=== PATIENT | female | born 1955 | race African-American/Black ===

== ENCOUNTER 2016-10-30 22:07 | Emergency (ER) | payer OTHER, MEDICAID ==
[~2016-10-30] VITALS: Ht 165.1 cm; Wt 79.5 kg
[~2016-10-30 22:07] MED LIST: BENA10TA3 PO; CETI1TAB36 PO; GABA300C PO; TRAZ100T2 PO
[2016-10-30 23:12] LABS: Basophils # (auto) 0 uL; Basophils % (auto) 0.9 % (0.0-2.0); Eosinophils # (auto) 0.4 uL; Eosinophils % (auto) 7.3 % (0.0-7.0); Hematocrit 40.3 % (36.0-46.0); Hemoglobin 13.2 g/dL (12.2-16.2); Lymphocytes % (auto) 39.9 % (10.0-50.0); Mean Corpuscular Hemoglobin 29.9 pg (28.0-32.0); Mean Corpuscular Hgb Conc. 32.7 g/dL (32.0-36.0); Mean Corpuscular Volume 91.4 fL (80.0-100.0); Mean Platelet Volume 6.8 fL (7.4-10.4); Monocytes # (auto) 0.4 uL; Monocytes % (auto) 7.9 % (0.0-12.0); Neutrophils # (auto) 2.3 uL; Platelet Count (auto) 306 10^3/uL (140-450); White Blood Cell 5.1 10^3/uL (4.4-10.8)
[2016-10-30 23:15] LABS: Urine Bilirubin Negative (Negative); Urine Blood Negative /uL (Negative); Urine Color Yellow (Yellow); Urine Glucose Normal (Normal); Urine Ketone Negative (Negative); Urine Nitrite Negative (Negative); Urine RBC <1 /hpf (0 - 4); Urine Squamous Epithelial Cell FEW /hpf (<5); Urine pH 7.5 (5.0-8.0)
[2016-10-30 23:32] LABS: BUN/Creatinine Ratio 11.2; Calcium 8.3 mg/dL (8.5-10.1); Potassium 3.5 mmol/L (3.5-5.1)
[2016-10-30 23:34] LABS: Bilirubin, Total 0.2 mg/dL (0.2-1.0); Total Protein 7.5 g/dL (6.4-8.2)
[2016-10-31] MEDS ORDERED: MECLIZINE HCL 25 MG TAB PO ONE (01:15)
[2016-10-31 02:47] VITALS: BP 103/70
== END 2016-10-31 02:24 | disposition home or self-care (01) ==
LOC: ER 22:13
DX: R42 Dizziness and giddiness (principal); R51 Headache; T65.91XA Toxic effect of unspecified substance, accidental (unintentional), initial encounter; I10 Essential (primary) hypertension; Z87.442 Personal history of urinary calculi; Y92.9 Unspecified place or not applicable; F17.210 Nicotine dependence, cigarettes, uncomplicated; E78.5 Hyperlipidemia, unspecified; Z88.1 Allergy status to other antibiotic agents; Z88.2 Allergy status to sulfonamides; Z79.899 Other long term (current) drug therapy
CPT/HCPCS: 36415; 70450; 80053; 81001; 85025; 85049; 99285; G0434; J8597

== ENCOUNTER 2024-09-03 11:12 | Emergency (ER) | payer MEDICAID, OTHER ==
[~2024-09-03] VITALS: Ht 162.6 cm; Wt 75.0 kg
[~2024-09-03 11:12] MED LIST changes: -BENA10TA3 PO; +BENA10TA90 PO; +TRAZ-228 PO; -TRAZ100T2 PO
--- NOTE | 2024-09-03 11:43 | ED.PDOC ---
History of Present Illness HPI Comments 69-year-old female brought in by EMS presents with a chief complaint of abdominal pain x 1 week with associated urinary frequency. Patient states that her abdominal pain is localized to her LLQ, non-radiating, describes as cramping, and rates her pain a 10/10. Patient mentions that x 1 week ago she had lithotripsy surgery performed by Dr. Espinosa due to kidney stones. Patient reports that she has been urinating more frequently since having the surgery. No other symptoms or modifying factors present at this time. Chief Complaint: Abdominal Pain Time Seen by MD: 11:24 Primary Care Provider: FRANCISCA Reviewed Notes: Medications, Allergies Allergies: Coded Allergies: Sulfa Antibiotics (Verified Allergy, Severe, 07/23/15) Home Meds Reported Medications Trazodone Hcl (Trazodone Hcl) 100 Mg Tab, 100 MG PO HSPRN PRN, TAB 01/01/14 Benazepril Hcl (Benazepril Hcl) 10 Mg Tab, 10 MG PO DAILY, TAB 01/01/14 Cetirizine Hcl (ZYRTEC ALLERGY) 10 Mg Tab, 10 MG PO DAILY, TAB 01/01/14 Gabapentin (Neurontin) 300 Mg Cap, 300 MG PO DAILY, CAP 01/01/14 Information Source: Patient Mode of Arrival: EMS Severity: Moderate Timing: Hours Duration: Since onset Prehospital treatment: None Past Medical History PAST MEDICAL HISTORY: High Lipids, HTN, Kidney Stones [employer] History: No Pertinent [employer]ER History Family History Family History: Unobtainable Social History Smoker: Cigarettes, Greater Than 1 Pack/Day Alcohol: Denies ETOH Use Drugs: Denies Drug Use Lives In: Home Constitutional: denies: chills, diaphoresis, fatigue, fever, malaise, sweats, weakness, others EENTM: denies: blurred vision, double vision, ear bleeding, ear discharge, ear drainage, ear pain, ear ringing, eye pain, eye redness, hearing loss, mouth pain, mouth swelling, nasal discharge, nose bleeding, nose congestion, nose pain, photophobia, tearing, throat pain, throat swelling, voice changes, others Respiratory: denies: cough, hemoptysis, orthopnea, SOB at rest, shortness of breath, SOB with excertion, stridor, wheezing, others Cardiovascular: denies: chest pain, dizzy spells, diaphoresis, Dyspnea on exertion, edema, irregular heart beat, left arm pain, lightheadedness, palpitations, PND, syncope, others Gastrointestinal: reports: abdominal pain; denies: abdomen distended, blood streaked bowels, constipated, diarrhea, dysphagia, difficulty swallowing, hematemesis, melena, nausea, poor appetite, poor fluid intake, rectal bleeding, rectal pain, vomiting, others Genitourinary: reports: frequency; denies: abnormal vagina bleeding, burning, dyspareunia, dysuria, flank pain, hematuria, incontinence, pain, , vagina discharge, urgency, others Neurological: denies: dizziness, fainting, headache, left sided numbness, left sided weakness, numbness, paresthesia, pre-existing deficit, right sided numbness, right sided weakness, seizure, speech problems, tingling, tremors, weakness, others Musculoskeletal: denies: back pain, gout, joint pain, joint swelling, muscle pain, muscle stiffness, neck pain, others Integumetry: denies: bruises, change in color, change in hair/nails, dryness, laceration, lesions, lumps, rash, wounds, others Allergic/Immunocompromised: denies: Difficulty Healing, Frequent Infections, Hives, Itching, others Hematologic/Lymphatic: denies: anemia, blood clots, easy bleeding, easy bruising, swollen glands, others Endocrine: denies: excessive hunger, excessive sweating, excessive thirst, excessive urination, flushing, intolerance to cold, intolerance to heat, unexplained weight gain, unexplained weight loss, others Psychiatric: denies: anxiety, bipolar disorder, depression, hopeless, panic disorder, schizophrenia, sleepless, suicidal, others All Other Systems: Reviewed and Negative Physical Exam General Appearance: No Apparent Distress, Normal HEENT: Normal ENT Inspection, Pharynx Normal, TMs Normal Neck: Full Range of Motion, Non-Tender, Normal, Normal Inspection Respiratory: Chest Non-Tender, Lungs Clear, No Accessory Muscle Use, No Re spiratory Distress, Normal Breath Sounds Cardiovascular: No Edema, No JVD, No Murmur, No Gallop, Normal Peripheral Pulses, Regular Rate/Rhythm Breast Exam: Deferred Gastrointestinal: No Organomegaly, Non Tender, No Pulsatile Mass, Normal Bowel Sounds, Soft Genitalia: Deferred Pelvic: Deferred Rectal: Deferred Extremities: No calf tenderness, Normal capillary refill, Normal inspection, Normal range of motion, Non-tender, No pedal edema Musculoskeletal : Apperance: Normal Neurologic: Alert, rust proofer II-XII nml as Tested, No Motor Deficits, Normal Affect, Normal Mood, No Sensory Deficits Cerebellar Function: Normal Reflexes: Normal Skin: Dry, Normal Color, Warm Lymphatic: No Adenopathy Was a procedure done? Was a procedure done?: No Differential Dx Considerations may include: Renal colic, UTI, postprocedure pain X-Ray, Labs, Meds, VS Vital Signs Date Time Temp Pulse Resp B/P (MAP) Pulse Ox O2 Delivery O2 Flow Rate FiO2 09/03/24 12:42 93 17 185/89 09/03/24 12:40 93 17 185/89 (121) 100 09/03/24 12:40 93 17 100 Room Air* 0 21 09/03/24 12:04 91 09/03/24 11:17 90 09/03/24 11:12 98.4 98 16 172/112 (132) 100 Lab Test 09/03/24 11:49 09/03/24 11:00 Range/Units White Blood Count 6.2 4.4-10.8 10^3/uL Red Blood Count 4.43 4.0-5.20 10^6/uL Hemoglobin 13.5 12.2-16.2 g/dL Hematocrit 40.9 36.0-46.0 % Mean Corpuscular Volume 92.3 80.0-100.0 fL Mean Corpuscular Hemoglobin 30.4 28.0-32.0 pg Mean Corpuscular Hemoglobin Concent 33.0 32.0-36.0 g/dL Red Cell Distribution Width 14.1 11.8-14.3 % Platelet Count 406 140-450 10^3/uL Mean Platelet Volume 7.1 6.9-10.8 fL Neutrophils (%) (Auto) 65.6 37.0-80.0 % Lymphocytes (%) (Auto) 20.7 10.0-50.0 % Monocytes (%) (Auto) 6.9 0.0-12.0 % Eosinophils (%) (Auto) 6.1 0.0-7.0 % Basophils (%) (Auto) 0.7 0.0-2.0 % Neutrophils # (Auto) 4.0 1.6-8.6 10 ^3/uL Lymphocytes # (Auto) 1.3 0.4-5.4 10 ^3/uL Monocytes # (Auto) 0.4 0-1.3 10 ^3/uL Eosinophils # (Auto) 0.4 0-0.8 10 ^3/uL Basophils # (Auto) 0 0-0.2 10 ^3/uL Nucleated Red Blood Cells 0.1 % Sodium Level 144 136-145 mmol/L Potassium Level 3.8 3.5-5.1 mmol/L Chloride Level 111 H 98-107 mmol/L Carbon Dioxide Level 28 20-31 mmol/L Anion Gap 5 5-15 Blood Urea Nitrogen 12 9-23 mg/dL Creatinine 1.36 H 0.550-1.02 mg/dL Glomerular Filtration Rate Calc 42 >90 mL/min BUN/Creatinine Ratio 8.8 L 10.0-20.0 Serum Glucose 88 74-106 mg/dL Calcium Level 9.6 8.7-10.4 mg/dL Urine Color Colorless Yellow Urine Clarity Clear Clear Urine pH 6.5 5.0-9.0 Urine Specific [place] 1.009 1.001-1.035 Urine Protein 1+ H Negative Urine Ketones Negative Negative Urine Blood Trace H Negative /uL Urine Nitrite Negative Negative Urine Bilirubin Negative Negative Urine Urobilinogen Normal Negative mg/dL Urine Leukocyte Esterase Negative Negative /uL Urine RBC 6 0 - 4 /hpf Urine WBC 2 0 - 5 /hpf Urine Squamous Epithelial Cells Few <5 /hpf Urine Bacteria None seen None Seen /hpf Urine Hyaline Casts Few 0 - 2 /lpf Urine Glucose Normal Normal mg/dL Current Medications Medications (Trade) Dose Ordered Sig/Jonathan Route Start Time Stop Time Status Last Admin Sodium Chloride 1,000 ml @ 1,000 mls/hr Q1H ONCE IV 09/03/24 11:45 09/03/24 12:44 DC 09/03/24 12:28 Ondansetron HCl (Zofran) 4 mg ONCE ONCE IV 09/03/24 11:45 09/03/24 11:46 DC 09/03/24 12:41 Morphine Sulfate 4 mg ONCE ONCE IV 09/03/24 11:45 09/03/24 11:46 DC 09/03/24 12:42 Ketorolac Tromethamine (Toradol Injection) 15 mg ONCE ONCE IV 09/03/24 13:15 09/03/24 13:27 DC 09/03/24 13:35 Time of 1ST Reevaluation: 11:54 Reevaluation 1ST: Unchanged Patient Education/Counseling: Diagnosis, Treatment, Prognosis Family Education/Counseling: No Family Present Departure 1 Departure Time of Disposition: 14:36 Impression: Primary Impression: Renal colic Disposition: 01 HOME / SELF CARE / HOMELESS Condition: Stable Referrals: JAMES ESPINOSA MD Additional Instructions: You are passing kidney stones. You were prescribed norco to take as needed for breakthrough pain. Please take as directed. You should follow up with your regular doctor or a urologist within one week to ensure you are doing better. If your symptoms worsen or you have any other concerns then please return to the ER. e-Prescriptions Hydrocodone-Acetaminophen (Hydrocodone Bitartrate/AC 5-325 mg) 1 Tab Tab 1 TAB PO TID PRN for 4 Days, #12 TAB Prov: LIYA HENDERSON MD 09/03/24 Discharged With: Self Critical Care Note Critical Care Time?: No Stability Stability form required: No I personally scribed for LIYA HENDERSON MD ([email or web address]) on 09/03/24 at 11:43. Electronically submitted by Ronnie Gamez ([email or web address]). LIYA HENDERSON MD Sep 03, 2024 11:43
[2024-09-03 12:16] LABS: Basophils # (auto) 0 10 ^3/uL (0-0.2); Basophils % (auto) 0.7 % (0.0-2.0); Eosinophils # (auto) 0.4 10 ^3/uL (0-0.8); Eosinophils % (auto) 6.1 % (0.0-7.0); Hematocrit 40.9 % (36.0-46.0); Hemoglobin 13.5 g/dL (12.2-16.2); Lymphocytes # (auto) 1.3 10 ^3/uL (0.4-5.4); Lymphocytes % (auto) 20.7 % (10.0-50.0); Mean Corpuscular Hemoglobin 30.4 pg (28.0-32.0); Mean Corpuscular Volume 92.3 fL (80.0-100.0); Monocytes # (auto) 0.4 10 ^3/uL (0-1.3); Monocytes % (auto) 6.9 % (0.0-12.0); Neutrophils % (auto) 65.6 % (37.0-80.0); Nucleated Red Blood Cells % 0.1 %; Platelet Count (auto) 406 10^3/uL (140-450); Red Blood Cells 4.43 10^6/uL (4.0-5.20); Red Cell Distribution Width 14.1 % (11.8-14.3); White Blood Cell 6.2 10^3/uL (4.4-10.8)
[2024-09-03 12:17] LABS: Urine Bacteria None Seen /hpf (None Seen)
[2024-09-03 12:23] LABS: Chloride 111 mmol/L (98-107); Potassium 3.8 mmol/L (3.5-5.1); Sodium 144 mmol/L (136-145)
[2024-09-03 12:24] LABS: Anion Gap 5 (5-15); Calcium 9.6 mg/dL (8.7-10.4); Carbon Dioxide 28 mmol/L (20-31)
--- NOTE | 2024-09-03 12:26 | DVH ---
CT abdomen and pelvis without contrast INDICATION: recent lithotripsy with worsening abdominal pain TECHNIQUE: Serial axial images were performed through the abdomen and pelvis and then reformatted in the sagittal and coronal plane. All CT scans at this medical facility are performed using dose modulation techniques as appropriate t o a performed exam including the following: Automated exposure control was utilized; adjustment of the MA and/or KvP according to patient size; a nd use of iterative reconstruction technique. FINDINGS: Atelectasis left lower lung zone. Heart size is enlarged. Liver and spleen are normal in size without focal mass. Multiple tiny calculi in an atrophied right kidney. Multiple small calculi in the left kidney. The largest of these is in the lower pole calyx measuring 8 mm. No hydronephrosis. No perinephric fluid collections. No masses or enlargement of the adrenal glands or pancreas. Gallbladder has been removed. No biliary dilatation. No distention of bowel loops to suggest mechanical obstruction of bowel. The appendix is normal in ap pearance. No free fluid. Within the pelvis, bladder is smooth walled without stones. Uterus enlarged probably due to fibroids. IMPRESSION: 1. Multiple bilateral renal calculi. Largest measures 8 mm in the lower pole of the left kidney. No hydronephrosis. Right kidney atrophy No stones in the urinary bladder Computed Tomographic Radiation Dosimetry Report: Total CTDI vol = 12 mGy Total DLP = 638 mGy-cm Low dose protocols were performed.
[2024-09-03] MEDS: SODIUM CHLORIDE 0.9% 1,000 ML IV ONE (12:28)
[2024-09-03 12:29] LABS: BUN/Creatinine Ratio 8.8 (10.0-20.0); Blood Urea Nitrogen 12 mg/dL (9-23); Glucose 88 mg/dL (74-106)
[2024-09-03 12:40] VITALS: PULSE 93; RESP 17; O2SAT 100
[2024-09-03] MEDS: ONDANSETRON HCL 4 MG/2 ML VIAL IV ONE (12:41)
[2024-09-03 12:42] LABS: Urine Blood TRACE /uL (Negative); Urine Clarity Clear (Clear); Urine Color Colorless (Yellow); Urine Hyaline Cast FEW /lpf (0 - 2); Urine Protein, UAD 1+ (Negative); Urine Specific Gravity 1.009 (1.001-1.035); Urine Urobilinogen Normal (Negative); Urine WBC 2 /hpf (0 - 5); Urine pH 6.5 (5.0-9.0)
[2024-09-03] MEDS: MORPHINE SULFATE 4 MG/ML SYR/VIAL IV ONE (12:42)
[2024-09-03] MEDS: KETOROLAC TROMETH 30 MG/ML 1ML VIAL IV ONE (13:35)
[2024-09-03] MEDS ORDERED: HYDR-4902 PO (14:29)
[2024-09-03 15:05] VITALS: BP 172/91; PULSE 96; RESP 17; TEMP 97.4; O2SAT 100
--- NOTE | 2024-09-04 07:20 | ECG ---
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
== END 2024-09-03 15:16 | disposition home or self-care (01) ==
LOC: ER 11:12 → EDBD 11:12 → ER 15:14
DX: N23 Unspecified renal colic (principal); I10 Essential (primary) hypertension; E78.5 Hyperlipidemia, unspecified; F17.210 Nicotine dependence, cigarettes, uncomplicated; Z88.2 Allergy status to sulfonamides; Z79.899 Other long term (current) drug therapy
CPT/HCPCS: 36415; 74176; 80048; 81001; 85025; 93005; 96361; 96374; 96375; 99285; J1885; J2270; J2405; J7030